=== PATIENT | female | born 1970 | race Caucasian/White ===

== ENCOUNTER 2021-08-02 07:16 | Emergency (ER) | payer OTHER ==
[~2021-08-02 07:16] MED LIST: ETODOLAC500 MG PO; FLEXERIL5 MG PO
[2021-08-02 08:17] LABS: BASOPHIL 0.3 % (0-2); EOSINOPHIL 0.5 % (0-5); HCT 43.3 % (37.0-47.0); LYMPHOCYTE 22.7 % (15-48); MCH 31.3 pg (25.0-31.0); MCHC 34.6 g/dL (32.0-36.0); MCV 90.2 fL (78.0-100.0); MONOCYTE 7.8 % (0-12); NEUTROPHIL 68.4 % (41-80); NRBC 0; PLT 301 K/uL (150-400); RDW 13.5 % (11.5-14.0); WBC 10.6 K/uL (4.0-10.5)
[2021-08-02 09:20] LABS: BILIRUBIN NEGATIVE (NEGATIVE); BLOOD 1+ Ery/uL (NEGATIVE); CLARITY CLEAR (CLEAR); COLOR YELLOW (YELLOW); GLUCOSE (U) NORMAL (NORMAL); LEUKOCYTES NEGATIVE Leu/uL (NEGATIVE); NITRITE NEGATIVE (NEGATIVE); PROTEIN NEGATIVE (NEGATIVE); SPECIFIC GRAVITY >=1.030 (1.001-1.030); UROBILINOGEN 0.2 mg/dL (0.2-1.0)
[2021-08-02 09:28] LABS: BACTERIA TRACE; SQUAMOUS EPITHELIAL CELLS 20-50
[2021-08-02 09:35] LABS: CREATININE 0.73 mg/dL (0.51-0.95); POTASSIUM 3.3 mmol/L (3.5-5.1)
[2021-08-02 09:48] LABS: ALBUMIN 4.3 g/dL (3.4-5.0); BILIRUBIN - TOTAL 0.5 mg/dL (0.2-1.0); GLOBULIN (CALCULATION) 3.7 g/dL
[2021-08-02 12:41] LABS: BASOPHIL 0.1 % (0-2); EOSINOPHIL 0.1 % (0-5); HCT 38.2 % (37.0-47.0); HGB 12.9 g/dl (12.5-16.0); LYMPHOCYTE 9.5 % (15-48); MCH 30.8 pg (25.0-31.0); MCHC 33.8 g/dL (32.0-36.0); MCV 91.2 fL (78.0-100.0); MONOCYTE 4.3 % (0-12); NEUTROPHIL 85.5 % (41-80); NRBC 0; PLT 256 K/uL (150-400); RBC 4.19 M/uL (4.20-5.40); RDW 13.7 % (11.5-14.0); WBC 13.1 K/uL (4.0-10.5)
[2021-08-02 14:56] LABS: BASOPHIL 0.2 % (0-2); EOSINOPHIL 0.1 % (0-5); HCT 38.5 % (37.0-47.0); LYMPHOCYTE 11.1 % (15-48); MCH 30.7 pg (25.0-31.0); MCHC 33.8 g/dL (32.0-36.0); MPV 8.9 fL (6.0-9.5); NEUTROPHIL 83.3 % (41-80); NRBC 0; PLT 264 K/uL (150-400); RBC 4.23 M/uL (4.20-5.40); RDW 13.6 % (11.5-14.0); WBC 11.8 K/uL (4.0-10.5)
[2021-08-02 15:08] LABS: BAND 5 % (0-10); LYMPHOCYTE(M) 10 % (15-48); MONOCYTE(M) 3 % (0-12); NEUTROPHILS(M) 82 % (41-80); PLATELET ESTIMATE NORMAL; PLATELET MORPHOLOGY NORMAL
[2021-08-02] MEDS ORDERED: ONDANSETRON ODT4 MG PO (15:39)
[2021-08-02] MEDS ORDERED: FLAGYL500 MG PO (15:39)
[2021-08-02] MEDS ORDERED: BENTYL10 MG PO (15:39)
== END 2021-08-02 15:40 | disposition home or self-care (01) ==
LOC: FER 07:16
PROVIDERS: Emergency Medicine
DX: K52.9 Noninfective gastroenteritis and colitis, unspecified (principal); Z88.1 Allergy status to other antibiotic agents
CPT/HCPCS: 36415; 80053; 81001; 82150; 83690; 85025; J1170; J2405; J7030; Q9967